=== PATIENT | female | born 1995 | race Caucasian/White ===

== ENCOUNTER 2022-07-07 14:14 | Emergency (ER) | payer OTHER ==
[~2022-07-07] VITALS: Ht 162.6 cm; Wt 72.4 kg
[~2022-07-07 14:14] MED LIST: PREN-96 PO
[2022-07-07 14:46] VITALS: BP 102/66
== END 2022-07-07 19:59 | disposition home or self-care (01) ==
LOC: ER 14:14
DX: S93.401A Sprain of unspecified ligament of right ankle, initial encounter (principal); X50.1XXA Overexertion from prolonged static or awkward postures, initial encounter; Y93.89 Activity, other specified; Y92.89 Other specified places as the place of occurrence of the external cause; Y99.8 Other external cause status
CPT/HCPCS: 73600; 73620

== ENCOUNTER 2024-07-06 20:56 | Emergency (ER) | payer MEDICAID, OTHER ==
[~2024-07-06] VITALS: Ht 162.6 cm; Wt 95.8 kg
[2024-07-06 21:38] VITALS: BP 100/75; PULSE 113; RESP 18; O2SAT 97
== END 2024-07-06 23:45 | disposition left against medical advice (07) ==
LOC: ER 20:56
DX: R11.2 Nausea with vomiting, unspecified (principal); R19.7 Diarrhea, unspecified; Z53.21 Procedure and treatment not carried out due to patient leaving prior to being seen by health care provider